=== PATIENT | male | born 1980 | race Caucasian/White ===

== ENCOUNTER 2019-04-18 18:44 | Emergency (ER) | payer MEDICAID, OTHER ==
[~2019-04-18] VITALS: Ht 180 cm; Wt 77.9 kg
--- NOTE | 2019-04-18 19:11 | ED General ---
General Stated Complaint: VOMITING BLOOD, RIB PAIN Source of Information: Patient, Family History of Present Illness Date Seen by Provider: Apr 18, 2019 Time Seen by Provider: 18:46 Initial Comments 38-year-old male presenting with complaints of intermittent vomiting with some bright red blood at times. He states that this is worse at night or when he is laying down. He now is also having some bilateral rib pain from throwing up. He stopped drinking alcohol week ago. He has been in the alcohol treatment center for the last week. He is trying to quit drinking. He states that he has a hard time sleeping. He also feels that he does not urinate as much as he should during the day. He feels that he only urinates about 2 times a day. He is eating from lying but when he throws up there is no food in an just the mucus and some bright red blood. About once a week or so he also passes a blood clot in his stool. He denies any dark tarry stools. He was unsure what was causing his symptoms and came to the emergency department from the alcohol treatment center because of having the symptoms and wanted to see what was going on. He was concerned that he might have an ulcer or something going on with his liver. Allergies and Home Medications Allergies Coded Allergies: No Known Drug Allergies (Unverified , 04/18/19) Home Medications Omeprazole 20 Mg Marah., 20 MG PO DAILY Prescribed by: HUMBERTO FERNANDEZ on 04/18/191945 Patient Home Medication List Home Medication List Reviewed: Yes Review of Systems Review of Systems Constitutional: No chills, No fever EENTM: No mouth pain, No mouth swelling, No throat swelling Respiratory: No cough Cardiovascular: chest pain (bilateral rib pain) Gastrointestinal: No abdominal pain; hematemesis, vomiting (intermittent vomiting worse in the evenings) Genitourinary: decreased output (feels that he is only urinating about twice a day) Musculoskeletal: back pain (chronic) Skin: No change in color, No rash Psychiatric/Neurological: Denies Tremors Past Bhuiupa-Muikep-Pnbkha Hx Past Med/Social Hx: Reviewed Nursing Past Med/Soc Hx Patient Social History Recent Foreign Travel: No Contact w/Someone Who Travel: No Physical Exam Vital Signs Vital Signs - First Documented 04/18/19 19:09 Temp 37.0 Pulse 103 Resp 22 B/P (MAP) 157/103 (121) Pulse Ox 98 Capillary Refill : Height, Weight, BMI Height: '" Weight: lbs. oz. kg; BMI Method: General Appearance: No Apparent Distress, WD/WN HEENT: PERRL/EOMI, Normal ENT Inspection, Pharynx Normal Neck: Full Range of Motion, Normal Inspection, Non Tender, Supple Respiratory: Lungs Clear, Normal Breath Sounds, No Accessory Muscle Use, No Respiratory Distress, Other (some tenderness to palpation on the lower ribs bilaterally) Cardiovascular: Regular Rate, Rhythm, Normal Peripheral Pulses Gastrointestinal: Normal Bowel Sounds, No Pulsatile Mass, Non Tender, Soft Rectal: Deferred Extremity: Normal Capillary Refill, Normal Range of Motion, Non Tender, No Calf Tenderness, No Pedal Edema Neurologic/Psychiatric: Alert, Oriented x3, No Motor/Sensory Deficits Skin: Normal Color, Warm/Dry Progress/Results/Core Measures Suspected Sepsis SIRS Temperature: Pulse: Respiratory Rate: Laboratory Tests 04/18/19 18:55: White Blood Count 10.9 Blood Pressure / Mean: Laboratory Tests 04/18/19 18:55: Creatinine 0.95, INR Comment 0.9, Platelet Count 217, Total Bilirubin < 0.2 Results/Orders Lab Results Laboratory Tests Test 04/18/19 18:55 Range/Units White Blood Count 10.9 4.3-11.0 10^3/uL Red Blood Count 4.84 4.35-5.85 10^6/uL Hemoglobin 15.4 13.3-17.7 G/DL Hematocrit 46 40-54 % Mean Corpuscular Volume 96 80-99 FL Mean Corpuscular Hemoglobin 32 25-34 PG Mean Corpuscular Hemoglobin Concent 33 32-36 G/DL Red Cell Distribution Width 12.2 10.0-14.5 % Platelet Count 217 130-400 10^3/uL Mean Platelet Volume 10.8 H 7.4-10.4 FL Neutrophils (%) (Auto) 64 42-75 % Lymphocytes (%) (Auto) 25 12-44 % Monocytes (%) (Auto) 8 0-12 % Eosinophils (%) (Auto) 3 0-10 % Basophils (%) (Auto) 0 0-10 % Neutrophils # (Auto) 6.9 1.8-7.8 X 10^3 Lymphocytes # (Auto) 2.7 1.0-4.0 X 10^3 Monocytes # (Auto) 0.8 0.0-1.0 X 10^3 Eosinophils # (Auto) 0.3 0.0-0.3 10^3/uL Basophils # (Auto) 0.0 0.0-0.1 10^3/uL Prothrombin Time 13.0 12.2-14.7 SEC INR Comment 0.9 0.8-1.4 Activated Partial Thromboplast Time 26 24-35 SEC Urine Color YELLOW Urine Clarity CLEAR Urine pH 5.5 5-9 Urine Specific [place] >=1.030 1.016-1.022 Urine Protein NEGATIVE NEGATIVE Urine Glucose (UA) NEGATIVE NEGATIVE Urine Ketones NEGATIVE NEGATIVE Urine Nitrite NEGATIVE NEGATIVE Urine Bilirubin NEGATIVE NEGATIVE Urine Urobilinogen 0.2 NORMAL MG/DL Urine Leukocyte Esterase NEGATIVE NEGATIVE Urine RBC (Auto) NEGATIVE NEGATIVE Urine RBC 0-2 /HPF Urine WBC RARE /HPF Urine Squamous Epithelial Cells 0-2 /HPF Urine Crystals NONE /LPF Urine Bacteria NEGATIVE /HPF Urine Casts NONE /LPF Urine Mucus SMALL H /LPF Urine Culture Indicated NO Sodium Level 141 135-145 MMOL/L Potassium Level 4.1 3.6-5.0 MMOL/L Chloride Level 100 98-107 MMOL/L Carbon Dioxide Level 24 21-32 MMOL/L Anion Gap 17 H 5-14 MMOL/L Blood Urea Nitrogen 16 7-18 MG/DL Creatinine 0.95 0.60-1.30 MG/DL Estimat Glomerular Filtration Rate > 60 BUN/Creatinine Ratio 17 Glucose Level 141 H 70-105 MG/DL Calcium Level 9.5 8.5-10.1 MG/DL Corrected Calcium 8.5-10.1 MG/DL Total Bilirubin < 0.2 0.1-1.0 MG/DL Aspartate Amino Transf (AST/SGOT) 53 H 5-34 U/L Alanine Aminotransferase (ALT/SGPT) 103 H 0-55 U/L Alkaline Phosphatase 65 40-136 U/L Total Protein 7.6 6.4-8.2 GM/DL Albumin 4.7 H 3.2-4.5 GM/DL Lipase 34 8-78 U/L Serum Alcohol < 10 <10 MG/DL My Orders Orders - HUMBERTO FERNANDEZ MD Comprehensive Metabolic Panel (04/18/19 18:47) Lipase (04/18/19 18:47) Ua Culture If Indicated (04/18/19 18:47) Ed Iv/Invasive Line Start (04/18/19 18:47) Cbc With Automated Diff (04/18/19 18:47) Protime With Inr (04/18/19 18:47) Partial Thromboplastin Time (04/18/19 18:47) Alcohol (04/18/19 18:47) Ribs/Bilateral With Chest (04/18/19 19:04) Pantoprazole Tablet (Protonix Tablet) (04/18/19 19:48) Vital Signs/I&O 04/18/19 04/18/19 19:09 20:05 Temp 37.0 37.5 Pulse 103 91 Resp 22 20 B/P (MAP) 157/103 (121) 137/103 Pulse Ox 98 96 Capillary Refill : Progress Note #1: Progress Note Check basic labs as well as chest x-ray with ribs and urine. Family is describing sounds like he could have an ulcer or possibly some esophageal varices. With his repeated vomiting after long history of alcohol abuse he likely has some gastritis. He would benefit from an EGD or scoping but provided his labs look okay he could certainly arrange this as an outpatient. His vital signs show mild elevation of his blood pressure. Progress Note #2: Progress Note Labs look stable and clear. His urinalysis does demonstrate that he is dry with an elevated specific gravity. His chest x-ray and rib films do not show any fractures or pneumothorax. Encouraged to treat with PPI to help for possible gastritis after recent chronic alcoholism. Encouraged to establish with the clinic and follow-up for further care. Diagnostic Imaging Diagonstic Imaging: Xray Plain Films/CT/US/NM/MRI: chest (and ribs) Comments NAME: [facility] REC#: [id number] PT STATUS: REG ER : 1980 PHYSICIAN: HUMBERTO FERNANDEZ MD ADMIT DATE: 04/18/19/ER FS Draft Date of Exam:04/18/19 RIBS/BILATERAL WITH CHEST INDICATION: Hemoptysis and chest wall pain Single AP view of the chest is obtained. AP and oblique views of the ribs are obtained, bilaterally. No acute fracture is identified. There is no evidence of pneumothorax or pleural reaction. There is no abnormal lytic or sclerotic focus. No associated pulmonary contusion is identified. Overall heart size and pulmonary vascularity are unremarkable and there is no evidence of significant pleural fluid. IMPRESSION: No acute abnormality. Dictated on workstation # [id number] Dict: 04/18/191921 Trans: 04/18/191924 [facility] [id number] Interpreted by: PRESTON CAMPO MD Electronically signed by: Departure Impression Primary Impression: Chronic alcoholic gastritis with hemorrhage Additional Impression: Chest wall muscle strain Qualified Codes: S29.011A - Strain of muscle and tendon of front wall of thorax, initial encounter Disposition: HOME, SELF-CARE Condition: Stable Departure-Patient Inst. Decision time for Depature: 19:43 Referrals: NO,LOCAL PHYSICIAN (PCP) Primary Care Physician [facility] [place] Patient Instructions: Dehydration, Adult (DC), Gastritis (DC), Muscle Strain (DC) Add. Discharge Instructions: Drink more water and stay better hydrated Follow up with clinic and get established with a primary provider for further care. You would benefit from a scope to look at your stomach and esophagus for possible ulcers or damage from drinking alcohol for so long. Taking an acid reducing medicine will help with your stomach irritation and the vomiting blood. Scripts Omeprazole (Omeprazole) 20 Mg Capsule.dr 20 MG PO DAILY for gastritis for 30 Days, #30 CAP 0 Refills Prov: HUMBERTO FERNANDEZ MD 04/18/19 Work/School Note: Work Release Form Date Seen in the Emergency Department: Apr 18, 2019 Return to Work: Apr 18, 2019 Restrictions: No Restrictions Other Restrictions Listed Below: May return to [facility] center HUMBERTO FERNANDEZ MD Apr 18, 2019 19:11
[2019-04-18 19:14] LABS: BASOPHILS % (AUTO) 0 % (0-10); EOSINOPHILS # (AUTO) 0.3 10^3/uL (0.0-0.3); EOSINOPHILS % (AUTO) 3 % (0-10); HEMATOCRIT 46 % (40-54); HEMOGLOBIN 15.4 G/DL (13.3-17.7); LYMPHOCYTES # (AUTO) 2.7 X 10^3 (1.0-4.0); LYMPHOCYTES % (AUTO) 25 % (12-44); MEAN CORPUSCULAR HEMOGLOBIN 32 PG (25-34); MEAN CORPUSCULAR HGB CONC 33 G/DL (32-36); MEAN CORPUSCULAR VOLUME 96 FL (80-99); MEAN PLATELET VOLUME 10.8 FL (7.4-10.4); MONOCYTES # (AUTO) 0.8 X 10^3 (0.0-1.0); MONOCYTES % (AUTO) 8 % (0-12); NEUTROPHILS # (AUTO) 6.9 X 10^3 (1.8-7.8); NEUTROPHILS % (AUTO) 64 % (42-75); PLATELET COUNT 217 10^3/uL (130-400); RED CELL DISTRIBUTION WIDTH 12.2 % (10.0-14.5); WHITE BLOOD COUNT 10.9 10^3/uL (4.3-11.0)
[2019-04-18 19:19] LABS: BACTERIA,URINE NEGATIVE /HPF; BILIRUBIN,URINE NEGATIVE (NEGATIVE); CLARITY,URINE CLEAR; COLOR,URINE YELLOW; GLUCOSE, URINE (UA) NEGATIVE (NEGATIVE); KETONES,URINE NEGATIVE (NEGATIVE); LEUKOCYTE ESTERASE ,URINE NEGATIVE (NEGATIVE); NITRITE,URINE NEGATIVE (NEGATIVE); PH,URINE 5.5 (5-9); PROTEIN,URINE NEGATIVE (NEGATIVE); RBC,URINE 0-2 /HPF; SQUAMOUS EPITHELIAL CELL,UR 0-2 /HPF; UROBILINOGEN,URINE 0.2 MG/DL (NORMAL); WBC,URINE RARE /HPF
[2019-04-18 19:25] LABS: INR 0.9 (0.8-1.4)
--- NOTE | 2019-04-18 19:26 | Diagnostic Imaging Report ---
INDICATION: Hemoptysis and chest wall pain Single AP view of the chest is obtained. AP and oblique views of the ribs are obtained, bilaterally. No acute fracture is identified. There is no evidence of pneumothorax or pleural reaction. There is no abnormal lytic or sclerotic focus. No associated pulmonary contusion is identified. Overall heart size and pulmonary vascularity are unremarkable and there is no evidence of significant pleural fluid. IMPRESSION: No acute abnormality. Dictated by: Dictated on workstation # [id number]
[2019-04-18 19:29] LABS: ALANINE AMINOTRANSFERASE 103 U/L (0-55); ALBUMIN 4.7 GM/DL (3.2-4.5); ALKALINE PHOSPHATASE 65 U/L (40-136); BUN/CREATININE RATIO 17; CALCIUM 9.5 MG/DL (8.5-10.1); CARBON DIOXIDE 24 MMOL/L (21-32); CHLORIDE 100 MMOL/L (98-107); CREATININE SERUM 0.95 MG/DL (0.60-1.30); GFR ESTIMATED > 60; GLUCOSE 141 MG/DL (70-105); POTASSIUM 4.1 MMOL/L (3.6-5.0); SODIUM 141 MMOL/L (135-145); TOTAL PROTEIN 7.6 GM/DL (6.4-8.2)
[2019-04-18 19:30] LABS: BILIRUBIN,TOTAL < 0.2 MG/DL (0.1-1.0); LIPASE 34 U/L (8-78)
[2019-04-18] MEDS ORDERED: OMEP20CA13 PO (19:46)
[2019-04-18] MEDS ORDERED: PANTOPRAZOLE 40 MG (PROTONIX) TAB PO STA (19:48)
[2019-04-18 20:05] VITALS: BP 137/103
== END 2019-04-18 20:10 | disposition home or self-care (01) ==
LOC: ER FS 18:46
DX: K29.21 Alcoholic gastritis with bleeding (principal); S29.011A Strain of muscle and tendon of front wall of thorax, initial encounter; X58.XXXA Exposure to other specified factors, initial encounter
CPT/HCPCS: 36415; 71111; 80053; 80320; 81000; 83690; 85025; 85610; 85730

== ENCOUNTER 2019-04-25 14:09 | Emergency (ER) | payer MEDICAID ==
[~2019-04-25] VITALS: Ht 182.8 cm; Wt 79.1 kg
[~2019-04-25 14:09] MED LIST: OMEP20CA13 PO
[2019-04-25] MEDS ORDERED: LACTATED RINGERS 1,000 ML IV STA (14:37)
[2019-04-25] MEDS ORDERED: FAMOTIDINE 20MG/2ML IV (PEPCID) IV STA (14:37)
[2019-04-25] MEDS ORDERED: diphenhydrAMINE 50 MG/ML INJ (BENADRYL) IVP ONE (14:45)
[2019-04-25] MEDS ORDERED: LIDOCAINE 2% VISCOUS 15 ML UDC PO ONE (14:45)
[2019-04-25] MEDS ORDERED: PROCHLORPERAZINE 10 MG/2ML INJ (COMPAZINE) IV ONE (14:45)
[2019-04-25] MEDS ORDERED: ACETAMINOPHEN 325 MG TABLET PO ONE (14:45)
[2019-04-25] MEDS ORDERED: SUMAtriptan 6 MG/0.5 ML (IMITREX) INJ SQ ONE (14:45)
[2019-04-25] MEDS ORDERED: ANTACID SUSP 30 ML UDC (MYLANTA) PO ONE (14:45)
[2019-04-25 14:50] LABS: HEMATOCRIT 47 % (40-54); HEMOGLOBIN 15.5 G/DL (13.3-17.7); MEAN CORPUSCULAR HEMOGLOBIN 32 PG (25-34); MEAN CORPUSCULAR HGB CONC 33 G/DL (32-36); MEAN CORPUSCULAR VOLUME 96 FL (80-99); PLATELET COUNT 239 10^3/uL (130-400); WHITE BLOOD COUNT 10.3 10^3/uL (4.3-11.0)
[2019-04-25 14:51] LABS: BASOPHILS % (AUTO) 0 % (0-10); EOSINOPHILS # (AUTO) 0.4 10^3/uL (0.0-0.3); EOSINOPHILS % (AUTO) 3 % (0-10); LYMPHOCYTES # (AUTO) 2.4 X 10^3 (1.0-4.0); LYMPHOCYTES % (AUTO) 24 % (12-44); MEAN PLATELET VOLUME 11.3 FL (7.4-10.4); MONOCYTES # (AUTO) 0.7 X 10^3 (0.0-1.0); MONOCYTES % (AUTO) 7 % (0-12); NEUTROPHILS # (AUTO) 6.7 X 10^3 (1.8-7.8); NEUTROPHILS % (AUTO) 65 % (42-75)
[2019-04-25 15:08] LABS: ALANINE AMINOTRANSFERASE 161 U/L (0-55); ALKALINE PHOSPHATASE 66 U/L (40-136); BILIRUBIN,TOTAL 0.3 MG/DL (0.1-1.0); BUN/CREATININE RATIO 20; CALCIUM 9.8 MG/DL (8.5-10.1); CARBON DIOXIDE 29 MMOL/L (21-32); CHLORIDE 103 MMOL/L (98-107); CREATININE SERUM 0.79 MG/DL (0.60-1.30); GFR ESTIMATED > 60; GLUCOSE 105 MG/DL (70-105); POTASSIUM 4.4 MMOL/L (3.6-5.0); SODIUM 141 MMOL/L (135-145)
[2019-04-25 15:09] LABS: ALBUMIN 4.9 GM/DL (3.2-4.5); LIPASE 34 U/L (8-78); TOTAL PROTEIN 7.7 GM/DL (6.4-8.2)
[2019-04-25 15:10] LABS: INR 0.9 (0.8-1.4); PROTHROMBIN TIME PATIENT 12.7 SEC (12.2-14.7)
--- NOTE | 2019-04-25 15:23 | Diagnostic Imaging Report ---
INDICATION: Chest pain. TIME OF EXAMINATION: 2:52 PM. COMPARISON: No prior studies are available for comparison. FINDINGS: The heart size is normal. The pulmonary vascularity is unremarkable. The lungs are clear. No infiltrate, effusion, or pneumothorax is detected. IMPRESSION: No acute cardiopulmonary process is detected. Dictated by: Dictated on workstation # [id number]
--- NOTE | 2019-04-25 15:25 | Diagnostic Imaging Report ---
PROCEDURE: CT head without contrast. TECHNIQUE: Multiple contiguous axial images were obtained through the brain without the use of intravenous contrast. Auto Exposure Controls were utilized during the CT exam to meet ALARA standards for radiation dose reduction. INDICATION: Head pain. FINDINGS: There is no hemorrhage, hydrocephalus, edema, mass, mass effect, or findings of elevated intracerebral pressures. The basilar cisterns are patent. There is no sulcal effacement. Orbits, sinuses, and calvarium appear nonacute. IMPRESSION: Normal CT head. Dictated by: Dictated on workstation # [id number]
[2019-04-25] MEDS: MAGNESIUM 1 GM/100 ML IVPB 100 ML IV SCH ×2 (16:03→16:14)
--- NOTE | 2019-04-25 16:35 | ED Chest Pain ---
General Chief Complaint: Chest Pain Stated Complaint: CHEST PAIN Nursing Triage Note: Patient c/o chest pain and migraine. States that his migraine has been going on for the past 3 days. The chest pain reportedly started at 7am today. Patient states it feels like a vice and heaviness and has just been getting worse since this morning. He also reports that he was seen last night in the ED at [facility] and got a couple shots for his migraine. Nursing Sepsis Screen: No Definite Risk History of Present Illness Date Seen by Provider: Apr 25, 2019 Time Seen by Provider: 14:00 Initial Comments The patient is a 38-year-old male with a history of alcohol abuse, clean for approximately last month and currently in an inpatient alcohol treatment facility in [facility]. The patient presents with concern for 2 problems. First, patient reports a gradual-onset migraine headache with onset about 3 days ago affecting primarily the left side of his head. He states he was seen for this in the emergency department at [place] yesterday and received "2 shots in my butt" but did not make him feel better. He was then discharged to follow-up. Associated photophobia, phonophobia and nausea. Patient reports that before he was a daily drinker he used to have similar headaches all the time, but that after he started drinking he used alcohol to dull the pain. He states he does not have that crutch available to him now. Second, patient notes epigastric discomfort radiating up to his low chest with onset this morning on awakening from sleep. Discomfort is burning in character and achy and nothing seems to make it better or worse. It is nonexertional and nonpleuritic. No associated shortness of breath or diaphoresis. Patient denies associated fevers, vomiting, focal weakness, numbness, tingling, neck stiffness, vision changes, shortness of breath, lower or specifically right-sided abdominal pain, flank pain, back pain, dysuria or hematuria, changes in bowel habits. He is alert and oriented 4 and pleasantly and appropriately interactive and in no significant distress upon initial assessment in the em ergency department. Allergies and Home Medications Allergies Coded Allergies: No Known Drug Allergies (Unverified , 04/18/19) Home Medications Omeprazole 20 Mg Marah., 20 MG PO DAILY Prescribed by: HUMBERTO FERNANDEZ on 04/18/191945 Patient Home Medication List Home Medication List Reviewed: Yes Review of Systems Review of Systems Constitutional: see HPI All Other Systems Reviewed Negative Unless Noted: Yes (Negative excepted noted.) Past Oobycfz-Drkxqx-Pczhzl Hx Past Med/Social Hx: Reviewed Nursing Past Med/Soc Hx Patient Social History Alcohol Use: Past History Recreational Drug Use: No Smoking Status: Former Smoker Type Used: Cigarettes 2nd Hand Smoke Exposure: Yes Recent Foreign Travel: No Contact w/Someone Who Travel: No Recent Infectious Disease Expo: No Recent Hopitalizations: No Physical Abuse: No Sexual Abuse: No Mistreated: No Fear: No Seasonal Allergies Seasonal Allergies: No Past Medical History Surgeries: No Respiratory: No Cardiac: No Neurological: No Genitourinary: No Gastrointestinal: Yes Gastroesophageal Reflux Musculoskeletal: No Endocrine: No HEENT: No Cancer: No Psychosocial: Yes (alcohol abuse ) Anxiety Integumentary: No Blood Disorders: No Family Medical History Reviewed Nursing Family Hx Physical Exam Vital Signs Vital Signs - First Documented Capillary Refill : Less Than 3 Seconds Height, Weight, BMI Height: '" Weight: lbs. oz. kg; 23.00 BMI Method: General Appearance: No Apparent Distress Other comments This is a younger male appearing nontoxic and in no acute distress. Head is normocephalic and atraumatic. Neck is supple and without meningismus. Patient is able to range neck fully in all dimensions without significant discomfort. Oropharynx is moist. Lungs are clear to auscultation in all stations. There is a normal S1 and S2 without rubs or gallops and capillary refill is appropriate, less than 2 seconds globally. Abdomen is soft and nondi stended and with very mild epigastric tenderness to palpation without rebound or guarding. Skin is warm and dry without cyanosis, clubbing or edema. Psychiatrically, the patient did mistreats appropriate mood and affect and is alert. From a neurologic standpoint, cranial nerves II through XII are intact and there are no lateralizing deficits noted. Speech is normal. Language is nor mal. Coordination is normal. There is no dysmetria with eatbjl-jd-wfjq or pkgl-bt-htil bilaterally. Strength is 5 out of 5 in all joints of bilateral upper and lower extremity. Sensation is intact to light touch in bilateral upper and lower extremity. Patient relates with a narrow, steady gait in the emergency department and is alert and oriented 4. Progress/Results/Core Measures Results/Orders Lab Results Laboratory Tests Test 9/24/19 14:15 Range/Units White Blood Count 10.3 4.3-11.0 10^3/uL Red Blood Count 4.86 4.35-5.85 10^6/uL Hemoglobin 15.5 13.3-17.7 G/DL Hematocrit 47 40-54 % Mean Corpuscular Volume 96 80-99 FL Mean Corpuscular Hemoglobin 32 25-34 PG Mean Corpuscular Hemoglobin Concent 33 32-36 G/DL Red Cell Distribution Width 12.0 10.0-14.5 % Platelet Count 239 130-400 10^3/uL Mean Platelet Volume 11.3 H 7.4-10.4 FL Neutrophils (%) (Auto) 65 42-75 % Lymphocytes (%) (Auto) 24 12-44 % Monocytes (%) (Auto) 7 0-12 % Eosinophils (%) (Auto) 3 0-10 % Basophils (%) (Auto) 0 0-10 % Neutrophils # (Auto) 6.7 1.8-7.8 X 10^3 Lymphocytes # (Auto) 2.4 1.0-4.0 X 10^3 Monocytes # (Auto) 0.7 0.0-1.0 X 10^3 Eosinophils # (Auto) 0.4 H 0.0-0.3 10^3/uL Basophils # (Auto) 0.0 0.0-0.1 10^3/uL Prothrombin Time 12.7 12.2-14.7 SEC INR Comment 0.9 0.8-1.4 Activated Partial Thromboplast Time 27 24-35 SEC Sodium Level 141 135-145 MMOL/L Potassium Level 4.4 3.6-5.0 MMOL/L Chloride Level 103 98-107 MMOL/L Carbon Dioxide Level 29 21-32 MMOL/L Anion Gap 9 5-14 MMOL/L Blood Urea Nitrogen 16 7-18 MG/DL Creatinine 0.79 0.60-1.30 MG/DL Estimat Glomerular Filtration Rate > 60 BUN/Creatinine Ratio 20 Glucose Level 105 70-105 MG/DL Calcium Level 9.8 8.5-10.1 MG/DL Corrected Calcium 8.5-10.1 MG/DL Total Bilirubin 0.3 0.1-1.0 MG/DL Aspartate Amino Transf (AST/SGOT) 79 H 5-34 U/L Alanine Aminotransferase (ALT/SGPT) 161 H 0-55 U/L Alkaline Phosphatase 66 40-136 U/L Troponin I < 0.30 <0.30 NG/ML Total Protein 7.7 6.4-8.2 GM/DL Albumin 4.9 H 3.2-4.5 GM/DL Lipase 34 8-78 U/L Serum Alcohol < 10 <10 MG/DL My Orders Orders - ROGER DIA MD Cbc With Automated Diff (04/25/19 14:37) Comprehensive Metabolic Panel (04/25/19 14:37) Troponin I (04/25/19 14:37) Ekg Tracing (04/25/19 14:37) Chest 1 View Ap/Pa Only (04/25/19 14:37) Lipase (04/25/19 14:37) Alcohol (04/25/19 14:37) Ct Head Wo (04/25/19 14:37) Protime With Inr (04/25/19 14:37) Partial Thromboplastin Time (04/25/19 14:37) Prochlorperazine Injection (Compazine In (04/25/19 14:45) Diphenhydramine Injection (Benadryl Inje (04/25/19 14:45) Acetaminophen Tablet/Caplet (Tylenol T (04/25/19 14:45) Sumatriptan Injection (Imitrex Injection (04/25/19 14:45) Lidocaine 2% Viscous 15 Ml (Xylocaine Vi (04/25/19 14:45) Antacid Suspension (Mylanta Suspension (04/25/19 14:45) Lactated Ringers (Lr 1000 Ml Iv Solution (04/25/19 14:37) Famotidine Injection (Pepcid Injection) (04/25/19 14:37) Ed Iv/Invasive Line Start (04/25/19 14:37) Magnesium 1 Gm/100 Ml Ivpb (Magnesium Karimi (04/25/19 15:45) Medications Given in ED Current Medications Medications Dose Ordered Sig/Ruben Route Start Time Stop Time Status Last Admin Dose Admin Acetaminophen 975 mg ONCE ONCE PO 04/25/19 14:45 04/25/19 14:46 DC 04/25/19 15:05 975 MG Al Hydrox/Mg Hydrox/Simethicone 30 ml ONCE ONCE PO 04/25/19 14:45 04/25/19 14:46 DC 04/25/19 15:04 30 ML Diphenhydramine HCl 50 mg ONCE ONCE IVP 04/25/19 14:45 04/25/19 14:46 DC 04/25/19 15:05 50 MG Lidocaine HCl 15 ml ONCE ONCE PO 04/25/19 14:45 04/25/19 14:46 DC 04/25/19 15:04 15 ML Prochlorperazine Edisylate 10 mg ONCE ONCE IV 04/25/19 14:45 04/25/19 14:46 DC 04/25/19 15:05 10 MG Sumatriptan Succinate 6 mg ONCE ONCE SQ 04/25/19 14:45 04/25/19 14:46 DC 04/25/19 15:07 6 MG Vital Signs/I&O 04/25/19 04/25/19 14:09 14:09 Temp 36.6 Pulse 76 Resp 20 B/P (MAP) 150/100 (117) Pulse Ox 99 O2 Delivery Room Air Room Air Blood Pressure Mean: 117 Progress Progress Note : Time: 16:51 Progress Note Clinical examination reassuring. 38-year-old male with a prior history of ongoing headaches who states that he has been clean from alcohol that he used to self medicate for headaches in the past for about a month now. Now coming in with 3 days of left-sided headache without clear red flags aside from duration. Also with epigastric discomfort radiating up into his chest. The patient has been here before for what was felt to be alcoholic gastritis. No significant risk factors for ACS other than tobacco abuse. We will check labs and EKG and chest x-ray and head CT and we'll then reevaluate. Will treat discomfort with headache medications and GI cocktail and Pepcid. Update 1630: Patient is feeling much better after treatment as per flowsheet here in the emergency department. He states his headache is much improved and that he is not having any chest discomfort after treatment here and feels ready to go home. Workup unremarkable and reassuring. We will proceed with discharge back to his treatment facility at this time. We'll prescribe some Imitrex for headache. The patient understands that he feels worse is that of better or develops other new symptoms of concern that he should return immediately for reevaluation. All questions are answered. Comment Sinus rhythm, rate 79, no acute ST elevation or depression, NH 152, QRS 81, QTC 429, EP interpretation. Diagnostic Imaging Comments CT ABDOMEN/PELVIS W XR chest and CT head: nonacute per radiology read. Departure Impression Primary Impression: Headache Additional Impression: Other chest pain Disposition: HOME, SELF-CARE Condition: Improved Departure-Patient Inst. Referrals: SUMAN PINEDA APRN (PCP) Primary Care Physician Patient Instructions: Chest Pain (DC), Headache, Adult Scripts Sumatriptan Succinate (Imitrex) 25 Mg Tablet 25 MG PO Q6H PRN for headache, #10 TAB Prov: ROGER DIA MD 04/25/19 ROGER DIA MD Apr 25, 2019 16:34
[2019-04-25] MEDS ORDERED: SUMA25TA3 PO (16:58)
[2019-04-25 17:09] VITALS: BP 133/73
== END 2019-04-25 17:09 | disposition home or self-care (01) ==
LOC: EDUNIT# 14:09 → ER FS 14:12
DX: R51 Headache (principal); R07.89 Other chest pain; F41.9 Anxiety disorder, unspecified; K21.9 Gastro-esophageal reflux disease without esophagitis; Z87.891 Personal history of nicotine dependence; Z86.69 Personal history of other diseases of the nervous system and sense organs
CPT/HCPCS: 36415; 70450; 71045; 80053; 80320; 83690; 84484; 85025; 85610; 85730; 93005; 96372; 96374; 96375

== ENCOUNTER 2021-05-14 12:54 | Emergency (ER) | payer MEDICAID ==
[~2021-05-14] VITALS: Ht 182.8 cm; Wt 79.1 kg
[~2021-05-14 12:54] MED LIST changes: -OMEP20CA13 PO; +OMEP20CA18 PO; +SUMA25TA3 PO
--- OUTSIDE RECORDS SUMMARY | 2021-05-14 13:00 | XMS REPORT | Clinical Summary ---
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 If you d o not see the information that you expected, contact Release of Information in located within [facility] [employer] Information Management department at [phone] for further assistan ce in locating additional records.[facility] Allergies Not on File Medications Not on file Active Problems Not on file Social History Date Tobacco Use Types Packs/Day Years Used Never Assessed Sex Assigned at Date Recorded Not on file Last Filed Vital Signs Not on file Plan of Treatment Health Maintenance Due Date Last Done Comments HIV SCREENING 12/15/1995 DTAP/TDAP VACCINES (1 - 1998 Tdap) HEPATITIS C SCREENING 1998 PHYSICAL (COMPREHENSIVE) 1998 EXAM INFLUENZA VACCINE 03/02/2021 Results Not on filefrom Last 3 Months Insurance Type Payer Benefit Subscriber ID Effective Phone Address Plan / Dates Group Medicaid [facility] MEDICAID [facility] [id number] [id number] [employer] [place] [id number] Advance Directives 

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
[2021-05-14] MEDS ORDERED: IBUPROFEN 600 MG (MOTRIN) TAB PO ONE (13:30)
[2021-05-14] MEDS ORDERED: HYDROcodone/APAP 5 MG/325 MG (LORTAB) TAB PO ONE (13:30)
--- NOTE | 2021-05-14 13:48 | Diagnostic Imaging Report ---
INDICATION: Fall with left foot pain. TECHNIQUE: 3 views of the left foot. CORRELATION STUDY: None. FINDINGS: The osseous structures of the foot are intact. Joint spaces are maintained. Alignment anatomic. A thin, wire-like fragment is within the soft tissues, projecting below the fifth proximal phalanx. IMPRESSION: 1. Negative for bony abnormality of the foot. 2. Wire-like foreign body along the plantar aspect of the proximal little toe. Dictated by: Dictated on workstation # [id number]
--- NOTE | 2021-05-14 13:52 | Diagnostic Imaging Report ---
EXAM: Pelvis and right hip radiograph. EXAM DATE: 05/14/2021. COMPARISON: None. HISTORY: Fall on right hip, with pain. TECHNIQUE: Single view of the pelvis with two views of the right hip. FINDINGS: There is no acute fracture, dislocation, or destructive osseous process. The joint spaces are normal. The soft tissues are normal. IMPRESSION: No acute osseous abnormality of the pelvis or right hip. Dictated by: Dictated on workstation # [id number]
[2021-05-14 14:29] VITALS: BP 155/89
== END 2021-05-14 14:29 | disposition home or self-care (01) ==
LOC: EDUNIT# 12:54 → ER FS 12:56
DX: M79.672 Pain in left foot (principal); M25.551 Pain in right hip; K21.9 Gastro-esophageal reflux disease without esophagitis; Z79.899 Other long term (current) drug therapy
CPT/HCPCS: 73502; 73630

== ENCOUNTER 2022-08-23 14:32 | Emergency (ER) | payer MEDICAID ==
--- NOTE | 2022-08-23 14:36 | ED Cough/URI ---
General Chief Complaint: COVID19 Suspect/Confirmed Stated Complaint: KERR; CHEST CONGESTION History of Present Illness Date Seen by Provider: Aug 23, 2022 Time Seen by Provider: 14:36 Initial Comments 41-year-old male presents with generalized malaise. Patient is complaining of chest congestion, headache, stomachache. Patient reports that he quit drinking alcohol 5 days ago cold turkey a that might be contributing to it. He also has known exposure to COVID. No reports of fever. He does have some chills. Allergies and Home Medications Allergies Coded Allergies: No Known Drug Allergies (Unverified , 04/18/19) Patient Home Medication List Home Medication List Reviewed: Yes Omeprazole (Omeprazole) 20 Mg Capsule.dr, 20 MG PO DAILY Prescribed by: HUMBERTO FERNANDEZ on 04/18/191945 Sumatriptan Succinate (Imitrex) 25 Mg Tablet, 25 MG PO Q6H PRN for headache Prescribed by: ROGER DIA on 04/25/191657 Review of Systems Review of Systems Constitutional: chills; No fever; malaise Respiratory: cough, short of breath Cardiovascular: No chest pain Gastrointestinal: abdominal pain, nausea Musculoskeletal: see HPI Skin: no symptoms reported Psychiatric/Neurological: Headache Past Uopyrss-Tvkiui-Cqrjef Hx Seasonal Allergies Seasonal Allergies: No Past Medical History Surgeries: No Respiratory: No Cardiac: No Neurological: No Genitourinary: No Gastrointestinal: Yes Gastroesophageal Reflux Musculoskeletal: No Endocrine: No HEENT: No Cancer: No Psychosocial: Yes (alcohol abuse ) Anxiety Integumentary: No Blood Disorders: No Physical Exam Vital Signs - First Documented 08/23/22 14:44 Temp 36.4 Pulse 111 Resp 16 B/P (MAP) 157/112 (127) Pulse Ox 100 O2 Delivery Room Air Capillary Refill : Height: '" Weight: lbs. oz. kg; 23.00 BMI Method: General Appearance: WD/WN, no apparent distress Eyes: Bilateral Eye Normal Inspection HEENT: TMs normal, pharynx normal Neck: full range of motion, supple Respiratory: lungs clear, normal breath sounds, no respiratory distress Cardiovascular: normal peripheral pulses, tachycardia Gastrointestinal: non tender, soft Extremities: non-tender, normal inspection Neurologic/Psychiatric: alert, normal mood/affect, oriented x 3 Skin: normal color, warm/dry Progress/Results/Core Measures Suspected Sepsis SIRS Temperature: Pulse: Respiratory Rate: Laboratory Tests 08/23/22 14:50: White Blood Count 5.3 Blood Pressure / Mean: Laboratory Tests 08/23/22 14:50: Creatinine 0.90, Platelet Count 170, Total Bilirubin 0.2 Results/Orders Lab Results Laboratory Tests Test 08/23/22 14:50 Range/Units White Blood Count 5.3 4.3-11.0 10^3/uL Red Blood Count 4.65 4.30-5.52 10^6/uL Hemoglobin 15.3 13.3-17.7 g/dL Hematocrit 45 40-54 % Mean Corpuscular Volume 96 80-99 fL Mean Corpuscular Hemoglobin 33 25-34 pg Mean Corpuscular Hemoglobin Concent 34 32-36 g/dL Red Cell Distribution Width 12.1 10.0-14.5 % Platelet Count 170 130-400 10^3/uL Mean Platelet Volume 10.7 9.0-12.2 fL Immature Granulocyte % (Auto) 0 % Neutrophils (%) (Auto) 63 42-75 % Lymphocytes (%) (Auto) 18 12-44 % Monocytes (%) (Auto) 19 H 0-12 % Eosinophils (%) (Auto) 0 0-10 % Basophils (%) (Auto) 0 0-10 % Neutrophils # (Auto) 3.3 1.8-7.8 10^3/uL Lymphocytes # (Auto) 1.0 1.0-4.0 10^3/uL Monocytes # (Auto) 1.0 0.0-1.0 10^3/uL Eosinophils # (Auto) 0.0 0.0-0.3 10^3/uL Basophils # (Auto) 0.0 0.0-0.1 10^3/uL Immature Granulocyte # (Auto) 0.0 0.0-0.1 10^3/uL Sodium Level 135 135-145 MMOL/L Potassium Level 3.9 3.6-5.0 MMOL/L Chloride Level 96 L 98-107 MMOL/L Carbon Dioxide Level 26 21-32 MMOL/L Anion Gap 13 5-14 MMOL/L Blood Urea Nitrogen 9 7-18 MG/DL Creatinine 0.90 0.60-1.30 MG/DL Estimat Glomerular Filtration Rate 110 BUN/Creatinine Ratio 10 Glucose Level 137 H 70-105 MG/DL Calcium Level 9.5 8.5-10.1 MG/DL Corrected Calcium 8.5-10.1 MG/DL Magnesium Level 2.0 1.6-2.4 MG/DL Total Bilirubin 0.2 0.1-1.0 MG/DL Aspartate Amino Transf (AST/SGOT) 54 H 5-34 U/L Alanine Aminotransferase (ALT/SGPT) 47 0-55 U/L Alkaline Phosphatase 72 40-136 U/L C-Reactive Protein < 0.30 <0.50 MG/DL Pro-B-Type Natriuretic Peptide 23.1 <125.0 PG/ML Total Protein 7.4 6.4-8.2 GM/DL Albumin 4.6 H 3.2-4.5 GM/DL Lipase 29 8-78 U/L Serum Alcohol < 10 <10 MG/DL Influenza Type A (RT-PCR) Not Detected Not Detecte Influenza Type B (RT-PCR) Not Detected Not Detecte SARS-CoV-2 RNA (RT-PCR) Detected H Not Detecte My Orders Orders - LOVE,RAVI L DO Alcohol (08/23/22 14:42) Cbc With Automated Diff (08/23/22 14:42) Comprehensive Metabolic Panel (08/23/22 14:42) Lipase (08/23/22 14:42) Magnesium (08/23/22 14:42) Influenza A And B By Pcr (08/23/22 14:42) Probnp Fs (08/23/22 14:42) Crp Fs (08/23/22 14:42) Covid 19 Inhouse Test (08/23/22 14:42) Ondansetron Injection (Zofran Injectio (08/23/22 14:45) Ns Iv 1000 Ml (Sodium Chloride 0.9%) (08/23/22 14:42) Ed Iv/Invasive Line Start (08/23/22 14:42) Manual Differential (08/23/22 14:50) Medications Given in ED Current Medications Medications Dose Ordered Sig/Ruben Route Start Time Stop Time Status Last Admin Dose Admin Ondansetron HCl 4 mg ONCE ONCE IVP 08/23/22 14:45 08/23/22 14:46 DC 08/23/22 14:51 4 MG Vital Signs/I&O 08/23/22 14:44 Temp 36.4 Pulse 111 Resp 16 B/P (MAP) 157/112 (127) Pulse Ox 100 O2 Delivery Room Air Capillary Refill : Progress Note : Progress Note Patient symptoms likely a result of him being positive for COVID. Patient labs and physical exam shows no significant acute findings outside of COVID. Patient O2 saturations remained around 100% throughout his stay. Patient stable. Discussed with him that treatment is supportive care at this time. He can return to the ER if symptoms significantly worsen, with worsening shortness of breath or any other concerns. Patient was stable and is discharged home Departure Impression Primary Impression: COVID-19 Disposition: 01 HOME, SELF-CARE Condition: Stable Departure-Patient Inst. Referrals: [facility] (PCP/Family) Primary Care Physician Patient Instructions: COVID-19 Home Care/Discharge Add. Discharge Instructions: Drink plenty of fluids, get plenty of rest. Tylenol or ibuprofen as needed for fever, chills body aches. Follow-up with their primary care provider as needed. Return to the ER with worsening increasing shortness of breath or any other concerns. Please follow CDC guidelines for isolation precautions. All discharge instructions reviewed with patient and/or family. Voiced understanding. RAVI LOVE DO Aug 23, 2022 14:36
[2022-08-23] MEDS ORDERED: NS IV 1000 ML 1,000 ML IV STA (14:42)
[2022-08-23] MEDS ORDERED: ONDANSETRON 4 MG/2 ML (SDV) Z0FRAN IVP ONE (14:45)
[2022-08-23 14:50] LABS: BASOPHILS % (AUTO) 0 % (0-10); EOSINOPHILS % (AUTO) 0 % (0-10); HEMATOCRIT 45 % (40-54); HEMOGLOBIN 15.3 g/dL (13.3-17.7); LYMPHOCYTES % (AUTO) 18 % (12-44); MEAN CORPUSCULAR HEMOGLOBIN 33 pg (25-34); MEAN CORPUSCULAR HGB CONC 34 g/dL (32-36); MEAN CORPUSCULAR VOLUME 96 fL (80-99); MEAN PLATELET VOLUME 10.7 fL (9.0-12.2); MONOCYTES % (AUTO) 19 % (0-12); NEUTROPHILS # (AUTO) 3.3 10^3/uL (1.8-7.8); NEUTROPHILS % (AUTO) 63 % (42-75); PLATELET COUNT 170 10^3/uL (130-400); WHITE BLOOD COUNT 5.3 10^3/uL (4.3-11.0)
[2022-08-23 15:07] LABS: ALANINE AMINOTRANSFERASE 47 U/L (0-55); ALBUMIN 4.6 GM/DL (3.2-4.5); ALKALINE PHOSPHATASE 72 U/L (40-136); BILIRUBIN,TOTAL 0.2 MG/DL (0.1-1.0); BUN/CREATININE RATIO 10; CALCIUM 9.5 MG/DL (8.5-10.1); CARBON DIOXIDE 26 MMOL/L (21-32); CHLORIDE 96 MMOL/L (98-107); GFR ESTIMATED 110; GLUCOSE 137 MG/DL (70-105); LIPASE 29 U/L (8-78); POTASSIUM 3.9 MMOL/L (3.6-5.0); SODIUM 135 MMOL/L (135-145); TOTAL PROTEIN 7.4 GM/DL (6.4-8.2)
[2022-08-23 15:34] VITALS: BP 156/98
[2022-08-23 20:19] LABS: EOSINOPHILS % (MANUAL) 2 %; LYMPHOCYTES % (MANUAL) 17 %; MONOCYTES % (MANUAL) 15 %; NEUTROPHILS % (MANUAL) 66 %
== END 2022-08-23 15:34 | disposition home or self-care (01) ==
LOC: EDUNIT# 14:32 → ER FS 14:34
DX: U07.1 COVID-19 (principal); R51.9 Headache, unspecified; R68.83 Chills (without fever); R09.89 Other specified symptoms and signs involving the circulatory and respiratory systems; Z28.310 Unvaccinated for COVID-19
CPT/HCPCS: 36415; 80053; 83690; 83735; 83880; 85007; 85027; 86141; 87636; 99283; G0480; 80320